=== PATIENT | male | born 1980 | race American Indian/Alaskan Native ===

== ENCOUNTER 2020-11-08 08:00 | Emergency (ER) | payer SELFPAY ==
[2020-11-08 08:56] VITALS: BP 149/97
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
--- NOTE | 2020-11-08 10:13 | XRay Report ---
Right hand 4 views INDICATION: Pain FINDINGS: Mild degenerative change of the thumb and index finger MCP joints. Mild degenerative change at the IP joints. There is a subtle irregularity and fracture within the base of the fourth metacarp al best seen on oblique images. Old ulnar styloid process fracture. Mild diffuse swelling along the d orsal aspect of the hand. IMPRESSION: Fractures of the base of the fourth metacarpal best seen on oblique images. Soft tissue swelling of t he dorsal aspect of the hand. Signer Name: Deejay Cast MD Signed: 11/08/2020 10:09 AM Workstation Name: [id number]
[2020-11-08] MEDS ORDERED: IBUPROFEN 800 MG TAB PO ONE (10:25)
== END 2020-11-08 11:28 | disposition home or self-care (01) ==
LOC: ED 08:00
DX: S62.394A Other fracture of fourth metacarpal bone, right hand, initial encounter for closed fracture (principal); J45.909 Unspecified asthma, uncomplicated; Z79.899 Other long term (current) drug therapy; Y08.89XA Assault by other specified means, initial encounter; Y93.89 Activity, other specified; Y92.89 Other specified places as the place of occurrence of the external cause; Y99.8 Other external cause status
CPT/HCPCS: 99283